=== PATIENT | female | born 1960 | race Caucasian/White ===

== ENCOUNTER 2017-10-06 12:02 | Emergency (ER) | payer OTHER ==
[~2017-10-06] VITALS: Ht 165.1 cm; Wt 86.2 kg
[~2017-10-06 12:02] MED LIST: ATOR20 PO; AZIT250 PO; CRUTCH USE; CYCL10 PO; GABA300 PO; GLIP2.5ER PO; GUAPHELA PO; HYDACE5 PO; HYDACE5325 PO; HYDGUAL120 PO; IBUP800 PO; INSULANPEN SC; Lantus100 UNIT/1 SC; METF500 PO; NAPR220 PO; Neurontin 300300 MG PO; ONDA4 PO; OXYACE5T PO; PRED10 PO; PROACE100 PO; Pravachol40 MG PO; TOVIAZ PO
[2017-10-06] MEDS ORDERED: Ultram50 MG PO (14:37)
== END 2017-10-06 14:45 | disposition home or self-care (01) ==
LOC: ER 12:02
DX: M54.5 Low back pain (principal); M25.552 Pain in left hip; G89.29 Other chronic pain; F17.210 Nicotine dependence, cigarettes, uncomplicated; Z88.8 Allergy status to other drugs, medicaments and biological substances; Z79.899 Other long term (current) drug therapy; Z79.4 Long term (current) use of insulin; Z79.84 Long term (current) use of oral hypoglycemic drugs
CPT/HCPCS: 99282

== ENCOUNTER → 2017-11-24 | Outpatient (CLI) | payer OTHER ==
[~2017-11-24] MED LIST changes: +Ultram50 MG PO
[2017-11-24 10:43] LABS: BASOPHILS ABSOLUTE AUTO 0.05 K/mm3 (0.00-0.23); BASOPHILS PERCENT AUTO 1 % (0-2); EOSINOPHILS ABSOLUTE AUTO 0.23 K/mm3 (0.00-0.68); EOSINOPHILS PERCENT AUTO 4 % (0-6); Hematocrit 40.7 % (33.0-51.0); Hemoglobin 13.9 g/dL (11.5-16.0); IMMATURE GRAN ABSOLUTE AUTO 0.04 K/mm3 (0.00-0.10); IMMATURE GRAN PERCENT AUTO 1 % (0-1); LYMPHOCYTES ABSOLUTE AUTO 1.07 K/mm3 (0.84-5.20); LYMPHOCYTES PERCENT AUTO 17 % (21-46); MONOCYTES ABSOLUTE AUTO 0.41 K/mm3 (0.16-1.47); MONOCYTES PERCENT AUTO 6 % (4-13); Mean Corpuscular HGB 31.8 pg (26.0-34.0); Mean Corpuscular HGB Conc 34.2 g/dL (31.5-36.5); Mean Corpuscular Volume 93 fL (80-100); Mean Platelet Volume 10.2 fL (9.1-12.4); NEUTROPHILS ABSOLUTE AUTO 4.63 K/mm3 (1.96-9.15); NEUTROPHILS PERCENT AUTO 72 % (41-73); Platelet Count 295 K/mm3 (150-400); RDW Coefficient Variation 13.1 % (11.7-14.2); RDW Standard Deviation 44.9 fL (35.1-46.3); Red Blood Cell Count 4.37 M/mm3 (3.80-5.20); White Blood Cell Count 6.43 K/mm3 (4.00-11.30)
[2017-11-24 10:58] LABS: Anion Gap 12 mmol/L (6-16); Blood Urea Nitrogen 11 mg/dL (8-24); Bun/Creatinine Ratio 10.1 (12.0-20.0); CO2, Blood 23 mmol/L (21-32); Calcium, Blood 8.7 mg/dL (8.5-10.1); Chloride, Blood 106 mmol/L (98-108); Creatinine, Blood 1.09 mg/dL (0.40-1.00); Glomerular Filtration Rate 52 (60-); Glucose, Blood 310 mg/dL (70-99); Potassium, Blood 4.3 mmol/L (3.5-5.5); Sodium, Blood 141 mmol/L (136-145)
[2017-11-24 10:59] LABS: Troponin I <0.017 ng/mL (0.000-0.040)
== END ==
LOC: LAB SHORT 10:36 → LAB EV 10:36
PROVIDERS: Physician Assistant Surgical
DX: R07.9 Chest pain, unspecified (principal)
CPT/HCPCS: 80048; 84484; 85025

== ENCOUNTER → 2017-12-15 | Outpatient (CLI) | payer OTHER | END | disposition home or self-care (01) | LOC: LAB EV 10:27 → LAB SHORT 10:27 | DX: B37.2 Candidiasis of skin and nail (principal) | CPT/HCPCS: 87070; 87077; 87147; 87186; 87205 ==

== ENCOUNTER 2018-03-08 17:25 | Emergency (ER) | payer OTHER ==
[~2018-03-08] VITALS: Ht 165.1 cm; Wt 80.3 kg
[2018-03-08] MEDS ORDERED: Prednisone20 MG PO (17:55)
== END 2018-03-08 18:28 | disposition home or self-care (01) ==
LOC: ER 17:25
DX: L23.7 Allergic contact dermatitis due to plants, except food (principal); Z88.8 Allergy status to other drugs, medicaments and biological substances; Z79.899 Other long term (current) drug therapy; Z79.4 Long term (current) use of insulin; Z79.84 Long term (current) use of oral hypoglycemic drugs; F17.210 Nicotine dependence, cigarettes, uncomplicated
CPT/HCPCS: 96372; 99282; J3301

== ENCOUNTER 2019-05-14 21:20 | Inpatient (IN) | payer OTHER ==
[~2019-05-14] VITALS: Ht 165.1 cm; Wt 77.1 kg
[~2019-05-14 21:20] MED LIST changes: +Prednisone20 MG PO
[2019-05-14 21:46] LABS: BASOPHILS ABSOLUTE AUTO 0.08 K/mm3 (0.00-0.23); BASOPHILS PERCENT AUTO 1 % (0-2); EOSINOPHILS ABSOLUTE AUTO 0.17 K/mm3 (0.00-0.68); EOSINOPHILS PERCENT AUTO 2 % (0-6); Hematocrit 38.7 % (33.0-51.0); Hemoglobin 12.9 g/dL (11.5-16.0); IMMATURE GRAN ABSOLUTE AUTO 0.06 K/mm3 (0.00-0.10); IMMATURE GRAN PERCENT AUTO 1 % (0-1); LYMPHOCYTES ABSOLUTE AUTO 2.25 K/mm3 (0.84-5.20); LYMPHOCYTES PERCENT AUTO 20 % (21-46); MONOCYTES ABSOLUTE AUTO 0.62 K/mm3 (0.16-1.47); MONOCYTES PERCENT AUTO 6 % (4-13); Mean Corpuscular HGB 32.2 pg (26.0-34.0); Mean Corpuscular HGB Conc 33.3 g/dL (31.5-36.5); Mean Corpuscular Volume 97 fL (80-100); Mean Platelet Volume 10.3 fL (9.1-12.4); NEUTROPHILS PERCENT AUTO 71 % (41-73); Platelet Count 295 K/mm3 (150-400); RDW Coefficient Variation 13.4 % (11.7-14.2); RDW Standard Deviation 47.8 fL (35.1-46.3); Red Blood Cell Count 4.01 M/mm3 (3.80-5.20); White Blood Cell Count 11.08 K/mm3 (4.00-11.30)
[2019-05-14 22:01] LABS: International Normalized Ratio 0.95; Prothrombin Time Results 10.1 Sec (9.7-11.5)
[2019-05-14 22:10] LABS: Alanine Aminotransfer (ALT/SGP 24 U/L (12-78); Albumin, Blood 3.8 g/dL (3.4-5.0); Albumin/Globulin Ratio 1.1 (0.8-1.8); Alk Phos 113 U/L (50-136); Anion Gap 7 mmol/L (6-16); Aspartate Aminotrans (AST/SGOT 33 U/L (12-37); Bilirubin, Total 0.3 mg/dL (0.1-1.0); Blood Urea Nitrogen 27 mg/dL (8-24); Bun/Creatinine Ratio 23.5 (12.0-20.0); CO2, Blood 22 mmol/L (21-32); Calcium, Blood 9.4 mg/dL (8.5-10.1); Chloride, Blood 112 mmol/L (98-108); Creatinine, Blood 1.15 mg/dL (0.40-1.00); Ethanol (Alcohol), Blood, Med <3 mg/dL; Globulin, Blood 3.6 g/dL (2.2-4.0); Glomerular Filtration Rate 51 (60-); Glucose, Blood 124 mg/dL (70-99); Potassium, Blood 4.1 mmol/L (3.5-5.5); Sodium, Blood 141 mmol/L (136-145); Total Protein, Blood 7.4 g/dL (6.4-8.2)
[2019-05-14 23:36] LABS: Source, Urine Clean Catch
[2019-05-14 23:39] LABS: Bilirubin, Urine Neg (Neg); Blood, Urine 1+ (Neg); Glucose Qualitative, Urine Neg (Neg); Ketones, Urine 1+ (Neg); Leukocyte Esterase, Urine 1+ (Neg); Nitrite, Urine Neg (Neg); Protein, Urine 2+ (Neg); Urobilinogen, Urine NORM (Normal)
[2019-05-14 23:45] LABS: Appearance, Urine Clear (Clear); Color, Urine Yellow (P-Yellow)
[2019-05-14 23:46] LABS: Bacteria Many /hpf; Mucus Light ({null, 0-Heavy}); Red Blood Cells, Urine 0-2 /hpf (0-2); Squamous Epithelial Cells Few /hpf (Few)
[2019-05-14 23:49] LABS: U Amphetamine Screen Not Detected; U Barbituate Screen Not Detected; U Benzodiazapine Screen Not Detected; U Buprenorphine Screen Not Detected; U Cannabinoids Screen DETECTED; U Cocaine Screen Not Detected; U Methadone Screen Not Detected; U Methamphetamine Screen Not Detected; U Opiates Screen Not Detected; U Oxycodone Screen Not Detected; U Phencyclidine Screen Not Detected; U Propoxyphene Screen Not Detected
--- NOTE | 2019-05-15 01:37 | NUR ---
0137 ADMIT: PT ARRIVES TO ROOM 217 VIA GOURNEY AND TURN PIVOT TRANSFERS SELF TO BED; APPEARS STEADY ON FEET. PT RUE PROPPED ON PILLOW. PT ORIENTED TO ROOM, BED, CALL SYSTEM AND VERBALIZES UNDERSTANDING.
--- NOTE | 2019-05-15 06:00 | NUR ---
0600: DR. QUINN ROUNDS ON PT AND RN ASSIST WITH DRESSING CHANGE FOR PRE-OP EXAM OF INJURY. PT PRE-MEDICATED WITH 50MCG FENTANYL AND TOW; NO INCREASED SEDATION OR DECREASED RESPIRATORY DRIVE WITH IV PAIN MEDS.
--- NOTE | 2019-05-15 09:15 | NUR ---
PT LEFT ROOM WITH DAYSURG TO GO TO OR
--- NOTE | 2019-05-15 09:49 | NUR ---
IV REMOVED DUE TO ALMOST COMPLETELY DISLODGED AND BENT.
--- NOTE | 2019-05-15 09:55 | NUR ---
History, Chart, Medications and Allergies reviewed before start of procedure. Lungs clear T/O to Auscultation. PT DOES HAVE A COURSE COUGH. PT IS A SMOKER. Patient confirms NPO status and agrees with scheduled surgery. Pre-Op teaching done. Pt verbalizes understanding.
--- NOTE | 2019-05-15 13:35 | NUR ---
PT RETURNED TO ROOM FROM PACU, RUE WRAPPED IN PRATIK & SLING, WIGGLES FINGERS, REP N&T, A&OX4, PAIN 05/31, DENIES N&V. ALEKSANDR JELLO AND WATER. WILL TX PER EMAR.
--- NOTE | 2019-05-15 19:29 | NUR ---
SHIFT SUMMARY PT A&OX4, VSS, S/P ORIF RFA, WIGGLES FINGERS, ARM ELEVATED ON PILLOWS. PAIN MANAGED PER EMAR. ALEKSANDR PO, DENIES N&V. AMB W/SBA TO BRP. VOIDING WELL. REPORT GIVEN TO SUMMAR RN.
--- NOTE | 2019-05-16 08:04 | NUR ---
SUMMARY: POD [address] QUINN. VSS, AFEBRILE, ROOM AIR. TOLERATING REG PO INTAKE WELL AND VOIDING CLEAR YELLOW URINE. PT PAIN WELL CONTROLLED WITH SHIFT WITH 10MG ROXICODONE X2 AND PO TYLENOL. CONTINUE TO ELEVATE RUE AND USE ICE AND NURSING INTERVENTIONS TO HELP WITH PAIN CONTROLL. ANTICIPATE PT/OT AND GRIPS CONSULT.
[2019-05-16] MEDS ORDERED: BUDE6HFA INH ×2 (12:43→12:50)
[2019-05-16] MEDS ORDERED: IBUP600 PO (12:45)
[2019-05-16] MEDS ORDERED: SERT25 PO (12:49)
[2019-05-16] MEDS ORDERED: SEA-OMEGA 1,001 EACH PO (12:53)
[2019-05-16] MEDS ORDERED: CYCL10 PO (12:54)
[2019-05-16] MEDS ORDERED: ALBU90OI INH (12:56)
[2019-05-16 14:22] LABS: BASOPHILS ABSOLUTE AUTO 0.06 K/mm3 (0.00-0.23); BASOPHILS PERCENT AUTO 1 % (0-2); EOSINOPHILS ABSOLUTE AUTO 0.18 K/mm3 (0.00-0.68); EOSINOPHILS PERCENT AUTO 2 % (0-6); Hemoglobin 11.3 g/dL (11.5-16.0); IMMATURE GRAN ABSOLUTE AUTO 0.05 K/mm3 (0.00-0.10); IMMATURE GRAN PERCENT AUTO 1 % (0-1); LYMPHOCYTES ABSOLUTE AUTO 1.27 K/mm3 (0.84-5.20); LYMPHOCYTES PERCENT AUTO 13 % (21-46); MONOCYTES ABSOLUTE AUTO 0.66 K/mm3 (0.16-1.47); MONOCYTES PERCENT AUTO 7 % (4-13); Mean Corpuscular HGB 32.8 pg (26.0-34.0); Mean Corpuscular HGB Conc 33.2 g/dL (31.5-36.5); Mean Corpuscular Volume 99 fL (80-100); Mean Platelet Volume 10.3 fL (9.1-12.4); NEUTROPHILS ABSOLUTE AUTO 7.84 K/mm3 (1.96-9.15); NEUTROPHILS PERCENT AUTO 78 % (41-73); Platelet Count 241 K/mm3 (150-400); RDW Coefficient Variation 13.4 % (11.7-14.2); RDW Standard Deviation 48.5 fL (35.1-46.3); Red Blood Cell Count 3.44 M/mm3 (3.80-5.20); White Blood Cell Count 10.06 K/mm3 (4.00-11.30)
[2019-05-16 15:40] LABS: Anion Gap 5 mmol/L (6-16); Blood Urea Nitrogen 11 mg/dL (8-24); Bun/Creatinine Ratio 16.6 (12.0-20.0); CO2, Blood 23 mmol/L (21-32); Calcium, Blood 8.4 mg/dL (8.5-10.1); Chloride, Blood 109 mmol/L (98-108); Creatinine, Blood 0.66 mg/dL (0.40-1.00); Glomerular Filtration Rate >60 (60-); Glucose, Blood 201 mg/dL (70-99); Phosphorus, Blood 1.9 mg/dL (2.5-4.9); Potassium, Blood 3.9 mmol/L (3.5-5.5); Sodium, Blood 137 mmol/L (136-145)
[2019-05-17 05:13] LABS: BASOPHILS ABSOLUTE AUTO 0.04 K/mm3 (0.00-0.23); BASOPHILS PERCENT AUTO 1 % (0-2); EOSINOPHILS ABSOLUTE AUTO 0.23 K/mm3 (0.00-0.68); EOSINOPHILS PERCENT AUTO 3 % (0-6); Hematocrit 34.2 % (33.0-51.0); Hemoglobin 11.4 g/dL (11.5-16.0); IMMATURE GRAN ABSOLUTE AUTO 0.02 K/mm3 (0.00-0.10); IMMATURE GRAN PERCENT AUTO 0 % (0-1); LYMPHOCYTES ABSOLUTE AUTO 1.68 K/mm3 (0.84-5.20); LYMPHOCYTES PERCENT AUTO 20 % (21-46); MONOCYTES ABSOLUTE AUTO 0.61 K/mm3 (0.16-1.47); MONOCYTES PERCENT AUTO 7 % (4-13); Mean Corpuscular HGB 32.5 pg (26.0-34.0); Mean Corpuscular HGB Conc 33.3 g/dL (31.5-36.5); Mean Corpuscular Volume 97 fL (80-100); Mean Platelet Volume 10.3 fL (9.1-12.4); NEUTROPHILS PERCENT AUTO 69 % (41-73); Platelet Count 244 K/mm3 (150-400); RDW Coefficient Variation 13.2 % (11.7-14.2); RDW Standard Deviation 47.4 fL (35.1-46.3); Red Blood Cell Count 3.51 M/mm3 (3.80-5.20); White Blood Cell Count 8.28 K/mm3 (4.00-11.30)
[2019-05-17 05:32] LABS: Anion Gap 5 mmol/L (6-16); Blood Urea Nitrogen 11 mg/dL (8-24); Bun/Creatinine Ratio 15.1 (12.0-20.0); CO2, Blood 25 mmol/L (21-32); Calcium, Blood 8.5 mg/dL (8.5-10.1); Chloride, Blood 109 mmol/L (98-108); Creatinine, Blood 0.73 mg/dL (0.40-1.00); Glomerular Filtration Rate >60 (60-); Glucose, Blood 200 mg/dL (70-99); Phosphorus, Blood 2.8 mg/dL (2.5-4.9); Potassium, Blood 3.7 mmol/L (3.5-5.5); Sodium, Blood 139 mmol/L (136-145)
--- NOTE | 2019-05-17 06:14 | NUR ---
SHIFT SUMMARY HAS BEEN MEDICATED FOR PAIN PRN PER MD ORDERS. ABLE TO AMBULATE IN ROOM BY HERSELF. ENJOYED SNACK X1 THIS SHIFT. CONTINUES TO ELEVATE ARM ON PILLOW FOR COMFORT. DENIES FURTHER NEEDS OR WANTS AT THIS TIME. SAFETY MEASURES IN PLACE. WILL GIVE HAND OFF TO ONCOMING SHIFT USING SBAR.
--- NOTE | 2019-05-17 18:06 | NUR ---
SUMMARY: PT IS POD2 ORIF OF R WRIST. DID WELL TODAY. SURGICAL SITE WNL, ABLE TO WIGGLE FINGERS, CAP REFILL WNL. PAIN SEEMS TO BE MANAGED WELL WITH 2 OXYCODONE Q4 PRN. PT ELEVATING R ARM. REFUSES ICE PACK. PT UP INDEPENDENTLY. A/O, VSS. PLAN IS FOR PT TO TRANSFER TO [facility] TOMORROW OR TUESDAY. NO ACUTE SAFETY CONCERNS AT THIS TIME
--- NOTE | 2019-05-17 20:40 | NUR ---
REPORT CALLED TO SILAS PICKETT AT [facility].
--- NOTE | 2019-05-17 21:00 | NUR ---
DISCHARGE DISCHARGED TO [facility] ROOM [address] VIA [facility]. ALL BELONGINGS GATHERED AND TAKEN WITH HER.
== END 2019-05-17 21:00 | disposition short-term general hospital (02) | DRG 511 ==
LOC: ER 21:20 → SURS 22:40 → ER 22:40 → SURS 05-15 01:08
PROVIDERS: Emergency Medicine; Internal Medicine; Orthopaedic Surgery; ADMIT Surgery
PROC: 0PH Upper Bones, Insertion (ICD-10-PCS; 2019-05-15)
PROC: 0PHH05Z Insertion of External Fixation Device into Right Radius, Open Approach (ICD-10-PCS; 2019-05-15)
PROC: 0PH Upper Bones, Insertion (ICD-10-PCS; principal; 2019-05-15 10:45)
DX: S52.501B Unspecified fracture of the lower end of right radius, initial encounter for open fracture type I or II (principal); S62.141 Displaced fracture of body of hamate [unciform] bone, right wrist; S62.0 Fracture of navicular [scaphoid] bone of wrist; S52.601B Unspecified fracture of lower end of right ulna, initial encounter for open fracture type I or II; V03.99XA Pedestrian with other conveyance injured in collision with car, pick-up truck or van, unspecified whether traffic or nontraffic accident, initial encounter; Y92.410 Unspecified street and highway as the place of occurrence of the external cause; Y99.8 Other external cause status; S00.03XA Contusion of scalp, initial encounter; E11.40 Type 2 diabetes mellitus with diabetic neuropathy, unspecified; Z79.4 Long term (current) use of insulin; E78.5 Hyperlipidemia, unspecified; Z59.0 Homelessness; F17.210 Nicotine dependence, cigarettes, uncomplicated
CPT/HCPCS: 29125; 36415; 70450; 71045; 72125; 73090; 73100; 80053; 80069; 81001; 82947; 83036; 83690; 85025; 85610; 85730; 86850; 86900; 86901; 87086; 94640; 94760; 96361-59; 96365-59; 96375-59; 96376; 99285-25; A9270; G0480; J0690; J1650; J2250; J2270; J2405; J2704; J3010; J3480; J7030; J7060; J7120

== ENCOUNTER 2020-02-01 13:32 | Day surgery (SDC) | payer OTHER ==
[~2020-02-01] VITALS: Ht 165.1 cm; Wt 74.0 kg
[~2020-02-01 13:32] MED LIST changes: +ALBU90OI INH; +BASAGLAR K100 UNIT/3 SC; +BENADRYL25 MG PO; +BUDE6HFA INH; +DICL25ER PO; +IBUP600 PO; +LIDO5TO TOP; +SEA-OMEGA 1,001 EACH PO; +SERT25 PO
--- NOTE | 2020-02-01 15:07 | NUR ---
02/01/20 1507 Beni Reza A BLOOD GLUCOSE LEVEL TAKEN IN OR. RESULT IS 56. ANESTHESIOLOGIST NOTIFIED. WILL AWAIT FURTHER ORDERS
[2020-02-01 15:14] LABS: BASOPHILS ABSOLUTE AUTO 0.03 K/mm3 (0.00-0.23); BASOPHILS PERCENT AUTO 0 % (0-2); EOSINOPHILS ABSOLUTE AUTO 0.28 K/mm3 (0.00-0.68); EOSINOPHILS PERCENT AUTO 3 % (0-6); Hematocrit 34.4 % (33.0-51.0); Hemoglobin 11.2 g/dL (11.5-16.0); IMMATURE GRAN ABSOLUTE AUTO 0.04 K/mm3 (0.00-0.10); IMMATURE GRAN PERCENT AUTO 1 % (0-1); LYMPHOCYTES ABSOLUTE AUTO 2.13 K/mm3 (0.84-5.20); LYMPHOCYTES PERCENT AUTO 25 % (21-46); MONOCYTES PERCENT AUTO 7 % (4-13); Mean Corpuscular HGB 30.1 pg (26.0-34.0); Mean Corpuscular HGB Conc 32.6 g/dL (31.5-36.5); Mean Corpuscular Volume 93 fL (80-100); Mean Platelet Volume 9.8 fL (9.1-12.4); NEUTROPHILS ABSOLUTE AUTO 5.54 K/mm3 (1.96-9.15); NEUTROPHILS PERCENT AUTO 64 % (41-73); Platelet Count 315 K/mm3 (150-400); RDW Coefficient Variation 13.7 % (11.7-14.2); RDW Standard Deviation 46.6 fL (35.1-46.3); Red Blood Cell Count 3.72 M/mm3 (3.80-5.20); White Blood Cell Count 8.62 K/mm3 (4.00-11.30)
[2020-02-01 15:44] LABS: Magnesium, Blood 1.8 mg/dL (1.6-2.4)
[2020-02-01 15:57] LABS: Bun/Creatinine Ratio 19.3 (12.0-20.0); Calcium, Blood 8.1 mg/dL (8.5-10.1); Creatinine, Blood 1.19 mg/dL (0.40-1.00); Phosphorus, Blood 3.7 mg/dL (2.5-4.9); Potassium, Blood 3.7 mmol/L (3.5-5.5)
--- NOTE | 2020-02-01 16:15 | NUR ---
02/01/20 1615 Shaylee Paez PATIENT TRANSFERRED TO [facility] IN [facility]. KEPT IN [facility] FOR TRANSFER TO [facility]. WE ARE AWAITING ROOM ASSIGNMENT AT THIS TIME. PATIENT IS RATING PAIN AT 10/10. PATIENT IS GIVEN FENTANYL 25MCG PER ANESTHESIA ORDER. WILL CONTINUE TO MONITOR AND AWAIT ROOM ASSIGNMENT
[2020-02-01 20:53] LABS: C-REACTIVE PROTEIN, EXT RANGE 4.48 mg/dL (0.000-0.300)
[2020-02-03] MEDS ORDERED: HYDR1TAB94 PO (17:02)
[2020-02-03] MEDS ORDERED: CEPH500 PO (17:02)
== END 2020-02-01 17:11 | disposition home or self-care (01) ==
LOC: ORSCSDS 13:32
PROVIDERS: Orthopaedic Surgery
PROC: 0RPN04Z Removal of Internal Fixation Device from Right Wrist Joint, Open Approach (ICD-10-PCS; principal; 2020-02-01 14:45)
PROC: 0J9G0ZX Drainage of Right Lower Arm Subcutaneous Tissue and Fascia, Open Approach, Diagnostic (ICD-10-PCS; principal; 2020-02-01 14:45)
DX: T84.9XXA Unspecified complication of internal orthopedic prosthetic device, implant and graft, initial encounter (principal); J44.9 Chronic obstructive pulmonary disease, unspecified; F17.210 Nicotine dependence, cigarettes, uncomplicated; E78.5 Hyperlipidemia, unspecified; Z79.899 Other long term (current) drug therapy; E11.40 Type 2 diabetes mellitus with diabetic neuropathy, unspecified; Z79.84 Long term (current) use of oral hypoglycemic drugs
CPT/HCPCS: 80048; 82947; 83735; 84100; 85025; 85651; 86140; 87070; 87075; 87205; J0171; J0461; J2405; J2704; J2765; J3010; J3370; J7120